=== PATIENT | female | born 1940 | race Caucasian/White ===

== ENCOUNTER 2017-08-30 07:30 | Day surgery (SDC) | payer OTHER ==
[~2017-08-30] VITALS: Ht 167.6 cm; Wt 110.7 kg
[~2017-08-30 07:30] MED LIST: CLARITIN,ALAVAR10 MG PO; MOBIC15 MG PO; MULTI VITAMIN1 EACH PO; PRILOSEC20 MG PO
[2017-08-30 08:02] VITALS: BP 143/77
[2017-08-30 13:30] VITALS: BP 143/67
[2017-08-30 15:33] VITALS: BP 145/66
[2017-08-30 20:03] VITALS: BP 129/70
[2017-08-31 00:10] VITALS: BP 125/58
[2017-08-31 04:40] VITALS: BP 128/67
[2017-08-31 07:08] LABS: EOSINOPHIL (%) 0.2 % (0-5); IMMATURE GRANULOCYTE (%) 0.3 % (0.0-0.7); INSTRUMENT ABS NEUTROPHIL CT 9.3 K/uL; LYMPHOCYTE COUNT 1.9 K/uL (1.0-2.8); MCH 31.6 PG (29.0-34.0); MCHC 32.2 G/DL (30.0-36.0); MCV 98.1 FL (83-99); MEAN PLAT.VOLUME 10.5 uM^3 (9.5-12.4); MONOCYTE (%) 6.5 % (3-12); MONOCYTE COUNT 0.8 K/uL (0-0.8); NEUTROPHIL (%) 77.2 % (45-76); NEUTROPHIL COUNT 9.3 K/uL (1.8-6.4); PLATELET COUNT 172 K/uL (156-360); RBC DIS.WIDTH-CV 12.7 % (11.8-14.6); RBC DIS.WIDTH-SD 46.1 % (39-53); RED BLOOD COUNT 3.77 M/uL (3.80-5.20)
[2017-08-31] MEDS ORDERED: PREMARIN VAGI42.5 GM TP (08:05)
[2017-08-31] MEDS ORDERED: PERCOCET 5/31 TABLET PO (08:06)
[2017-08-31] MEDS ORDERED: DOCUSATE SODIU100 MG PO (08:06)
[2017-08-31 08:07] VITALS: BP 137/62
[2017-08-31 10:49] VITALS: BP 119/56
== END 2017-08-31 13:25 | disposition home or self-care (01) ==
LOC: SDC → 2SOUTH 11:52 → 2EAST 11:52 → ENRESERV 11:58 → 2EAST 13:23 → SDC 14:01 → 2EAST 08-31 13:25
PROVIDERS: Obstetrics & Gynecology
DX: N99.3 Prolapse of vaginal vault after hysterectomy (principal); N81.6 Rectocele; E66.9 Obesity, unspecified; Z68.39 Body mass index [BMI] 39.0-39.9, adult; K57.30 Diverticulosis of large intestine without perforation or abscess without bleeding; K21.9 Gastro-esophageal reflux disease without esophagitis; K31.84 Gastroparesis; Z86.010 Personal history of colon polyps
CPT/HCPCS: 85025; G0378; J1100; J1885; J2405; J3010; J7120

== ENCOUNTER 2017-10-13 12:04 | Emergency (ER) | payer OTHER ==
[~2017-10-13] VITALS: Ht 165.1 cm; Wt 112.1 kg
[~2017-10-13 12:04] MED LIST changes: +DOCUSATE SODIU100 MG PO; +PERCOCET 5/31 TABLET PO; +PREMARIN VAGI42.5 GM TP
[2017-10-13 14:10] LABS: BASOPHIL COUNT 0.1 K/uL (0-0.1); EOSINOPHIL (%) 1.6 % (0-5); EOSINOPHIL COUNT 0.1 K/uL (0-0.3); IMMATURE GRANULOCYTE (%) 0.2 % (0.0-0.7); INSTRUMENT ABS NEUTROPHIL CT 3.2 K/uL; LYMPHOCYTE COUNT 1.4 K/uL (1.0-2.8); MCH 31.8 PG (29.0-34.0); MCHC 32.6 G/DL (30.0-36.0); MCV 97.4 FL (83-99); MEAN PLAT.VOLUME 9.9 uM^3 (9.5-12.4); MONOCYTE (%) 6.9 % (3-12); MONOCYTE COUNT 0.4 K/uL (0-0.8); NEUTROPHIL (%) 62.1 % (45-76); NEUTROPHIL COUNT 3.2 K/uL (1.8-6.4); PLATELET COUNT 195 K/uL (156-360); RBC DIS.WIDTH-CV 12.7 % (11.8-14.6); RED BLOOD COUNT 4.31 M/uL (3.80-5.20); WHITE BLOOD COUNT 5.1 K/uL (4.1-10.2)
[2017-10-13 14:15] LABS: INTER. NORMALIZED RATIO 0.9; PROTHROMBIN TIME 10.6 SEC (10.2-12.9)
[2017-10-13 14:18] LABS: PTT 29.2 SEC (25-37)
[2017-10-13 14:20] LABS: CHLORIDE 107 mEq/L (99-109); POTASSIUM 4.2 mEq/L (3.7-5.4); SODIUM 139 mEq/L (136-147)
[2017-10-13 14:21] LABS: GLUCOSE 124 mg/dL (70-99)
[2017-10-13 14:23] LABS: ANION GAP 9 MEQ/L (2-14)
[2017-10-13 14:25] LABS: GFR ESTIMATE (CALCULATED) > 59 mL/min/
[2017-10-13 14:26] LABS: UREA NITROGEN (BUN) 17 mg/dL (9-23)
[2017-10-13 14:31] LABS: TROP-I INTERPRETATION NEGATIVE; TROPONIN-I < 0.01 ng/mL (0.0-0.30)
[2017-10-13] MEDS ORDERED: XARELTO1 EACH PO (15:06)
[2017-10-13 16:15] VITALS: BP 130/86
== END 2017-10-13 16:34 | disposition home or self-care (01) ==
LOC: EME 12:04
PROVIDERS: Emergency Medicine
DX: I82.621 Acute embolism and thrombosis of deep veins of right upper extremity (principal); Z85.44 Personal history of malignant neoplasm of other female genital organs; Z98.890 Other specified postprocedural states
CPT/HCPCS: 80048; 84484; 85025; 85610; 85730; 99281; 99284